=== PATIENT | male | born 1965 | race African-American/Black ===

== ENCOUNTER 2019-09-07 08:24 | Inpatient (IN) | payer MEDICAID ==
[~2019-09-07] VITALS: Ht 177.8 cm; Wt 51.7 kg
[2019-09-07] MEDS ORDERED: LORAZEPAM 1MG TABLET PO ONE (08:45)
[2019-09-07] MEDS ORDERED: ASPIRIN 325MG EC TABLET PO ONE (08:45)
[2019-09-07] MEDS ORDERED: NICOTINE 21MG PATCH TD ONE (08:45)
[2019-09-07 09:02] LABS: BASOPHILS % 0.2 % (0.0-2.0); EOSINOPHILS % 0.2 % (0.0-5.0); HEMATOCRIT. 36.8 % (42.0-52.0); HEMOGLOBIN. 12.2 g/dL (14.0-18.0); LYMPHOCYTES % 8.9 % (20.0-50.0); MEAN CORPUSCULAR HEMOGLOBIN 33.7 pg (28.0-32.0); MEAN CORPUSCULAR VOLUME 101.5 fL (80.0-94.0); MONOCYTES % 4.7 % (2.0-8.0); PLATELET 127 x1000/uL (130-400); RED BLOOD CELL COUNT 3.62 mill/uL (4.7-6.1); RED CELL DISTRIBUTION WIDTH 15.1 % (11.6-14.6)
[2019-09-07 09:10] LABS: CHLORIDE 102 mEq/L (98-107)
[2019-09-07 12:08] LABS: CLARITY URINE CLEAR (CLEAR); COLOR URINE DARK YELLOW (YELLOW); KETONES URINE NEGATIVE (NEGATIVE); LEUKOCYTE ESTERASE URINE NEGATIVE (NEGATIVE); NITRITE URINE NEGATIVE (NEGATIVE); OCCULT BLOOD URINE NEGATIVE (NEGATIVE); PROTEIN URINE TRACE (NEGATIVE); SPECIFIC GRAVITY URINE 1.021 (1.005-1.030)
[2019-09-07 17:01] VITALS: BP 140/78
[2019-09-07] MEDS ORDERED: CLONIDINE 0.1MG TABLET PO PRN (17:45)
[2019-09-07] MEDS ORDERED: ACETAMINOPHEN 325MG TABLET PO PRN (17:45)
[2019-09-07] MEDS ORDERED: ONDANSETRON HCL 4MG/2ML INJ IV PRN (17:45)
[2019-09-07] MEDS ORDERED: IPRATROPIUM/ALBUTEROL 0.5-3(2.5)MG/3ML NEB NEB PRN (17:45)
[2019-09-07 17:54] VITALS: BP 140/78
[2019-09-07 18:00] VITALS: BP 106/82
[2019-09-07] MEDS ORDERED: PROT40 MT (18:59)
[2019-09-07] MEDS ORDERED: DEPER5 MT (18:59)
[2019-09-07] MEDS ORDERED: FERR325T6 MT (18:59)
[2019-09-07] MEDS ORDERED: LEVO50TA8 MT (18:59)
[2019-09-07] MEDS ORDERED: ZOLP5TAB8 PO (18:59)
[2019-09-07] MEDS ORDERED: BENZ1TAB7 PO (18:59)
[2019-09-07] MEDS ORDERED: ESSENTIAL ONE DAILY PO (19:20)
[2019-09-07] MEDS ORDERED: ALBUTEROL INH (19:20)
[2019-09-07] MEDS ORDERED: CLOZAPINE PO (19:20)
[2019-09-07] MEDS ORDERED: DOCU-138 MT (19:20)
[2019-09-07] MEDS ORDERED: CLOZ100T31 PO (19:20)
[2019-09-07] MEDS ORDERED: CALC-25 PO (19:20)
[2019-09-07] MEDS ORDERED: ENOXAPARIN 40MG/0.4ML SYR SUBCUT SCH (20:00)
[2019-09-07 20:01] VITALS: BP 129/94
[2019-09-07] MEDS: DEXT 5%/0.45% NACL 1000ML 1,000 ML IV SCH (20:58)
[2019-09-07 22:00] VITALS: BP 157/71
[2019-09-08] VITALS (13 sets, daily range): BP systolic 106–145; BP diastolic 27–86
[2019-09-08] MEDS: LORAZEPAM 2MG/ML CPJ IM PRN ×2 (02:48→10:49)
[2019-09-08] MEDS: DEXT 5%/0.45% NACL 1000ML 1,000 ML IV SCH ×4 (04:30→23:48)
[2019-09-08 06:36] LABS: BASOPHILS % 0.3 % (0.0-2.0); EOSINOPHILS % 0.6 % (0.0-5.0); HEMATOCRIT. 31.7 % (42.0-52.0); HEMOGLOBIN. 10.8 g/dL (14.0-18.0); LYMPHOCYTES % 19.4 % (20.0-50.0); MEAN CORPUSCULAR HEMOGLOBIN 34.3 pg (28.0-32.0); MEAN CORPUSCULAR VOLUME 100.3 fL (80.0-94.0); MEAN PLATELET VOLUME 8.2 fl (7.4-10.4); MONOCYTES % 6.2 % (2.0-8.0); NEUTROPHILS % 73.5 % (40.0-76.0); PLATELET 128 x1000/uL (130-400); RED BLOOD CELL COUNT 3.16 mill/uL (4.7-6.1); RED CELL DISTRIBUTION WIDTH 14.8 % (11.6-14.6)
[2019-09-08 07:54] LABS: CHLORIDE 103 mEq/L (98-107)
[2019-09-08] MEDS ORDERED: LORAZEPAM 2MG/ML CPJ IV NR (15:45)
[2019-09-08 20:26] LABS: T4 FREE 1.05 ng/dL (0.76-1.46)
[2019-09-08 20:39] LABS: FOLIC ACID (FOLATE) SERUM > 20.00 ng/mL (>5.38)
[2019-09-08 20:48] LABS: VITAMIN B12 SERUM 1519 pg/mL (211-911)
[2019-09-08] MEDS ORDERED: ENOXAPARIN 30MG/0.3ML SYR SUBCUT SCH (21:00)
[2019-09-08] MEDS ORDERED: QUETIAPINE FUMARATE 50MG TABLET PO SCH (21:00)
[2019-09-08] MEDS: BENZTROPINE MESYLATE 1MG TABLET PO SCH (21:00)
[2019-09-08] MEDS: DIVALPROEX SODIUM 500MG ER TABLET PO SCH (21:00)
[2019-09-08] MEDS: ASPIRIN 81MG TABLET PO SCH (23:47)
[2019-09-09] VITALS (8 sets, daily range): BP systolic 18–135; BP diastolic 58–130
[2019-09-09 01:12] LABS: *AMPHETAMINES SCREEN URINE NEGATIVE (NEGATIVE); *BARBITURATES SCREEN URINE NEGATIVE (NEGATIVE)
[2019-09-09 01:13] LABS: *BENZODIAZEPINES SCREEN URINE NEGATIVE (NEGATIVE); *COCAINE SCREEN URINE NEGATIVE (NEGATIVE); CANNABINOID URINE SCREEN NEGATIVE (NEGATIVE); METHADONE URINE SCREEN NEGATIVE (NEGATIVE); OPIATES URINE SCREEN NEGATIVE (NEGATIVE); PHENCYCLIDINE URINE SCREEN NEGATIVE (NEGATIVE)
[2019-09-09] MEDS ORDERED: LEVOTHYROXINE SODIUM 50MCG TABLET PO SCH (06:50)
[2019-09-09] MEDS: LORAZEPAM 2MG/ML CPJ IM PRN ×2 (08:06→14:06)
[2019-09-09] MEDS: ASPIRIN 81MG TABLET PO SCH (09:00)
[2019-09-09] MEDS: DIVALPROEX SODIUM 500MG ER TABLET PO SCH (09:00)
[2019-09-09] MEDS: BENZTROPINE MESYLATE 1MG TABLET PO SCH (09:00)
[2019-09-09] MEDS: DEXT 5%/0.45% NACL 1000ML 1,000 ML IV SCH (10:30)
== END 2019-09-09 17:40 | disposition home or self-care (01) | DRG 45 ==
LOC: ER 08:24 → ENRESERV 15:50 → 3WST 17:13 → 6WST 09-09 10:55
PROVIDERS: ADMIT Internal Medicine; ATTEND Internal Medicine
DX: I63.9 Cerebral infarction, unspecified (principal); E44.1 Mild protein-calorie malnutrition; F20.9 Schizophrenia, unspecified; G81.94 Hemiplegia, unspecified affecting left nondominant side; D64.9 Anemia, unspecified; E03.9 Hypothyroidism, unspecified; I10 Essential (primary) hypertension; R47.81 Slurred speech; R62.50 Unspecified lack of expected normal physiological development in childhood; M21.332 Wrist drop, left wrist; K21.9 Gastro-esophageal reflux disease without esophagitis; J45.909 Unspecified asthma, uncomplicated; F17.210 Nicotine dependence, cigarettes, uncomplicated; G45.9 Transient cerebral ischemic attack, unspecified
CPT/HCPCS: 36415; 71045; 80048; 80053; 80061; 80165; 80305; 80320; 81003; 82607; 82746; 82962; 83036; 84439; 84443; 84481; 85025; 92610; 93306; 93880; 93970; 97162; 99285; J1650; J2060; G0480

== ENCOUNTER 2019-09-09 21:08 | Inpatient (IN) | payer MEDICAID ==
[~2019-09-09] VITALS: Ht 167.6 cm; Wt 44.9 kg
[~2019-09-09 21:08] MED LIST: ALBUTEROL INH; BENZ1TAB7 PO; CALC-25 PO; CLOZ100T31 PO; DEPER5 MT; DOCU-138 MT; ESSENTIAL ONE DAILY PO; FERR325T6 MT; LEVO50TA8 MT; PROT40 MT; ZOLP5TAB8 PO
[2019-09-09] MEDS ORDERED: SODIUM CHLORIDE 0.9% 1000ML BAG (SEPSIS BOLUS) IV ONE (21:30)
[2019-09-09] MEDS ORDERED: PROPOFOL 10MG/ML 100ML 100 ML IV NR (21:53)
[2019-09-09 22:19] LABS: BASOPHILS % 0.3 % (0.0-2.0); EOSINOPHILS % 0.5 % (0.0-5.0); HEMATOCRIT. 31.7 % (42.0-52.0); HEMOGLOBIN. 10.9 g/dL (14.0-18.0); MEAN CORPUSCULAR HEMOGLOBIN 34.2 pg (28.0-32.0); MEAN CORPUSCULAR VOLUME 99.6 fL (80.0-94.0); MEAN PLATELET VOLUME 8.4 fl (7.4-10.4); MONOCYTES % 6.1 % (2.0-8.0); NEUTROPHILS % 79.1 % (40.0-76.0); PLATELET 107 x1000/uL (130-400); RED BLOOD CELL COUNT 3.19 mill/uL (4.7-6.1); RED CELL DISTRIBUTION WIDTH 14.3 % (11.6-14.6)
[2019-09-09 22:22] LABS: INR 1.1; PROTHROMBIN TIME 11.7 sec (9.6-11.0)
[2019-09-09 22:26] LABS: CHLORIDE 106 mEq/L (98-107)
[2019-09-09 22:30] LABS: ETHANOL BLOOD < 10 mg/dL
[2019-09-09 22:42] LABS: BG CARBOXYHEMOGLOBIN 0.3 % (0.5-1.5); BG DEOXYHEMOGLOBIN 0.7 % (0.0-5.0); BG FRACTION INSPIRED OXYGEN 100; BG HCO3 ACT 27.2 mmol/L (22.0-26.0); BG METHEMOGLOBIN 0.2 % (0.0-1.5); BG OXYGEN SATURATION 99.3 % (92.0-98.5); BG OXYHEMOGLOBIN 98.8 % (94.0-97.0); BG PCO2 51.4 mmHg (35.0-45.0); BG PH 7.342 (7.350-7.450); BG PO2 421.7 mmHg (75.0-100.0); BG SAMPLE SITE RIGHT RADIAL; BG TIDAL VOLUME(mL) 500 mL; BG TOTAL HEMOGLOBIN 9.5 g/dL (12.0-18.0); BG VENT MODE VENT - A/C; BG VENT RATE 16 set
[2019-09-09] MEDS ORDERED: PROPOFOL 10MG/ML 100ML 100 ML IV SCH (22:45)
[2019-09-10] VITALS (83 sets, daily range): BP systolic 71–149; BP diastolic 29–97
[2019-09-10] MEDS ORDERED: PROPOFOL 10MG/ML 100ML 100 ML IV SCH (00:30)
[2019-09-10] MEDS ORDERED: ACETAMINOPHEN 325MG TABLET PO PRN (00:30)
[2019-09-10] MEDS ORDERED: PIPERACILLIN/TAZ 3.375G PREMIX 50 ML IV SCH ×2 (01:00→10:00)
[2019-09-10] MEDS ORDERED: VANCOMYCIN 1 G PREMIX 200 ML IV SCH (01:00)
[2019-09-10 02:16] LABS: CLARITY URINE CLEAR (CLEAR); COLOR URINE YELLOW (YELLOW); KETONES URINE TRACE (NEGATIVE); LEUKOCYTE ESTERASE URINE NEGATIVE (NEGATIVE); NITRITE URINE NEGATIVE (NEGATIVE); OCCULT BLOOD URINE 2+ (NEGATIVE); PROTEIN URINE TRACE (NEGATIVE); SPECIFIC GRAVITY URINE 1.012 (1.005-1.030)
[2019-09-10 02:53] LABS: *AMPHETAMINES SCREEN URINE NEGATIVE (NEGATIVE); *BARBITURATES SCREEN URINE NEGATIVE (NEGATIVE); *BENZODIAZEPINES SCREEN URINE NEGATIVE (NEGATIVE); *COCAINE SCREEN URINE NEGATIVE (NEGATIVE); CANNABINOID URINE SCREEN NEGATIVE (NEGATIVE); METHADONE URINE SCREEN NEGATIVE (NEGATIVE); OPIATES URINE SCREEN NEGATIVE (NEGATIVE)
[2019-09-10 02:54] LABS: PHENCYCLIDINE URINE SCREEN NEGATIVE (NEGATIVE)
[2019-09-10] MEDS: SODIUM CHLORIDE 0.9% 1,000 ML IV SCH ×2 (04:09→21:00)
[2019-09-10] MEDS: ACETAMINOPHEN 650MG/20.3ML UDC PO PRN ×2 (04:22→11:00)
[2019-09-10 06:02] LABS: CREATINE KINASE 299 IU/L (39-308)
[2019-09-10] MEDS: PROPOFOL 10MG/ML 100ML 100 ML IV PRN ×3 (08:14→21:30)
[2019-09-10] MEDS: VANCOMYCIN 1250MG in DEXTROSE 5% WATER 250ML IV SCH ×2 (09:00→21:37)
[2019-09-10] MEDS ORDERED: ENOXAPARIN 40MG/0.4ML SYR SUBCUT SCH (09:00)
[2019-09-10 09:27] LABS: BG CARBOXYHEMOGLOBIN 0.3 % (0.5-1.5); BG FRACTION INSPIRED OXYGEN 35; BG HCO3 ACT 20.7 mmol/L (22.0-26.0); BG METHEMOGLOBIN 0.3 % (0.0-1.5); BG OXYHEMOGLOBIN 97.4 % (94.0-97.0); BG PH 7.377 (7.350-7.450); BG PO2 117.9 mmHg (75.0-100.0); BG SAMPLE SITE RIGHT RADIAL; BG TIDAL VOLUME(mL) 500 mL; BG VENT MODE VENT - A/C; BG VENT RATE 14 set
[2019-09-10] MEDS ORDERED: INFLUENZA VIRUS VACCINE(AFLURIA) 0.5ML SYR IM ONE (10:00)
[2019-09-10] MEDS: PIPERACILLIN/TAZOBACTAM 3.375 G in DEXT 5% WATER 100 ML IV SCH ×2 (10:18→18:00)
[2019-09-10] MEDS: FOLIC ACID 1MG TABLET PO SCH (12:00)
[2019-09-10] MEDS: THIAMINE HCL 100MG TABLET PO SCH (12:00)
[2019-09-10 17:05] LABS: CREATINE KINASE 478 IU/L (39-308)
[2019-09-10 17:06] LABS: CREATINE KINASE MB FRACTION 6.7 ng/mL (0.5-3.6)
[2019-09-11] VITALS (87 sets, daily range): BP systolic 84–184; BP diastolic 42–146
[2019-09-11] MEDS: PIPERACILLIN/TAZOBACTAM 3.375 G in DEXT 5% WATER 100 ML IV SCH ×3 (02:00→17:52)
[2019-09-11] MEDS: PROPOFOL 10MG/ML 100ML 100 ML IV PRN ×4 (02:00→21:07)
[2019-09-11] MEDS: SODIUM CHLORIDE 0.9% 1,000 ML IV SCH ×2 (05:40→16:08)
[2019-09-11 05:46] LABS: HEMATOCRIT. 31.7 % (42.0-52.0); HEMOGLOBIN. 10.8 g/dL (14.0-18.0); MEAN CORPUSCULAR HEMOGLOBIN 34.2 pg (28.0-32.0); MEAN CORPUSCULAR VOLUME 100.9 fL (80.0-94.0); MEAN PLATELET VOLUME 8.6 fl (7.4-10.4); PLATELET 88 x1000/uL (130-400); RED BLOOD CELL COUNT 3.15 mill/uL (4.7-6.1); RED CELL DISTRIBUTION WIDTH 14.6 % (11.6-14.6)
[2019-09-11 05:56] LABS: CHLORIDE 112 mEq/L (98-107)
[2019-09-11 08:22] LABS: PLATELET ESTIMATE DECREASED
[2019-09-11] MEDS: FOLIC ACID 1MG TABLET PO SCH (08:47)
[2019-09-11] MEDS: ACETAMINOPHEN 650MG/20.3ML UDC PO PRN (08:47)
[2019-09-11] MEDS: THIAMINE HCL 100MG TABLET PO SCH (08:47)
[2019-09-11] MEDS: VANCOMYCIN 1250MG in DEXTROSE 5% WATER 250ML IV SCH (08:47)
[2019-09-11] MEDS: PANTOPRAZOLE SODIUM 40 MG/VIAL IV SCH (08:47)
[2019-09-11] MEDS ORDERED: HALOPERIDOL LACTATE 5MG/ML VIAL IM SCH (09:45)
[2019-09-11 13:46] LABS: BG BASE EXCESS -4.9 mmol/L (-2.0-2.0); BG DEOXYHEMOGLOBIN 1.6 % (0.0-5.0); BG FRACTION INSPIRED OXYGEN 40; BG HCO3 ACT 19.6 mmol/L (22.0-26.0); BG METHEMOGLOBIN 0.1 % (0.0-1.5); BG OXYGEN SATURATION 98.4 % (92.0-98.5); BG OXYHEMOGLOBIN 98.3 % (94.0-97.0); BG PCO2 34.3 mmHg (35.0-45.0); BG PH 7.374 (7.350-7.450); BG PO2 126.2 mmHg (75.0-100.0); BG PRESSURE SUPPORT 10; BG SAMPLE SITE RIGHT RADIAL; BG TOTAL HEMOGLOBIN 11.1 g/dL (12.0-18.0); BG VENT MODE VENT - CPAP
[2019-09-11 14:58] LABS: COVID-19 PCR RNA NOT DETECTED
[2019-09-11] MEDS: VANCOMYCIN 1,000 MG in DEXT 5% WATER 250 ML IV SCH (21:05)
[2019-09-12] VITALS (93 sets, daily range): BP systolic 91–162; BP diastolic 51–83
[2019-09-12] MEDS: IPRATROPIUM/ALBUTEROL 0.5-3(2.5)MG/3ML NEB NEB PRN (00:27)
[2019-09-12] MEDS: PIPERACILLIN/TAZOBACTAM 3.375 G in DEXT 5% WATER 100 ML IV SCH ×3 (01:46→17:15)
[2019-09-12] MEDS: PROPOFOL 10MG/ML 100ML 100 ML IV PRN ×4 (04:10→22:46)
[2019-09-12 08:52] LABS: BASOPHILS % 0.2 % (0.0-2.0); EOSINOPHILS % 1.4 % (0.0-5.0); HEMATOCRIT. 29.2 % (42.0-52.0); HEMOGLOBIN. 10.1 g/dL (14.0-18.0); LYMPHOCYTES % 11.4 % (20.0-50.0); MEAN CORPUSCULAR HEMOGLOBIN 34.3 pg (28.0-32.0); MEAN CORPUSCULAR VOLUME 99.1 fL (80.0-94.0); MEAN PLATELET VOLUME 8.7 fl (7.4-10.4); MONOCYTES % 4.8 % (2.0-8.0); NEUTROPHILS % 82.2 % (40.0-76.0); PLATELET 88 x1000/uL (130-400); RED BLOOD CELL COUNT 2.95 mill/uL (4.7-6.1); RED CELL DISTRIBUTION WIDTH 14.6 % (11.6-14.6)
[2019-09-12 09:00] LABS: CHLORIDE 114 mEq/L (98-107)
[2019-09-12] MEDS: PANTOPRAZOLE SODIUM 40 MG/VIAL IV SCH (09:11)
[2019-09-12] MEDS: VANCOMYCIN 1,000 MG in DEXT 5% WATER 250 ML IV SCH ×2 (09:13→20:39)
[2019-09-12] MEDS: THIAMINE HCL 100MG TABLET PO SCH (09:14)
[2019-09-12] MEDS: SODIUM CHLORIDE 0.9% 1,000 ML IV SCH ×2 (09:15→23:39)
[2019-09-12] MEDS: FOLIC ACID 1MG TABLET PO SCH (09:15)
[2019-09-12] MEDS ORDERED: NA PHOS,M-B/NA PHOS,DI-BA ENEMA 118ML PR NR (16:45)
[2019-09-12] MEDS ORDERED: DOCUSATE SODIUM 100MG CAPSULE PO SCH (17:00)
[2019-09-12 17:49] LABS: HEPATITIS B SURFACE ANTIGEN NEGATIVE
[2019-09-12 18:19] LABS: HEPATITIS A AB IGM NEGATIVE (NEGATIVE)
[2019-09-13] VITALS (91 sets, daily range): BP systolic 92–138; BP diastolic 20–82
[2019-09-13] MEDS: PIPERACILLIN/TAZOBACTAM 3.375 G in DEXT 5% WATER 100 ML IV SCH ×3 (01:38→17:07)
[2019-09-13] MEDS: PROPOFOL 10MG/ML 100ML 100 ML IV PRN ×3 (05:12→18:14)
[2019-09-13 06:10] LABS: BASOPHILS % 0.4 % (0.0-2.0); EOSINOPHILS % 2.4 % (0.0-5.0); HEMATOCRIT. 26.8 % (42.0-52.0); HEMOGLOBIN. 9.1 g/dL (14.0-18.0); LYMPHOCYTES % 15.2 % (20.0-50.0); MEAN CORPUSCULAR VOLUME 100.1 fL (80.0-94.0); MEAN PLATELET VOLUME 8.4 fl (7.4-10.4); PLATELET 89 x1000/uL (130-400); RED BLOOD CELL COUNT 2.68 mill/uL (4.7-6.1); RED CELL DISTRIBUTION WIDTH 14.5 % (11.6-14.6)
[2019-09-13 06:13] LABS: CHLORIDE 111 mEq/L (98-107)
[2019-09-13] MEDS: IPRATROPIUM/ALBUTEROL 0.5-3(2.5)MG/3ML NEB NEB PRN (07:57)
[2019-09-13 09:11] LABS: BG BASE EXCESS 1.2 mmol/L (-2.0-2.0); BG CARBOXYHEMOGLOBIN 0.3 % (0.5-1.5); BG FRACTION INSPIRED OXYGEN 40; BG HCO3 ACT 25.8 mmol/L (22.0-26.0); BG METHEMOGLOBIN 0.3 % (0.0-1.5); BG OXYHEMOGLOBIN 97.4 % (94.0-97.0); BG PCO2 41.1 mmHg (35.0-45.0); BG PH 7.416 (7.350-7.450); BG PO2 120.9 mmHg (75.0-100.0); BG PRESSURE SUPPORT 10; BG SAMPLE SITE LEFT RADIAL; BG TIDAL VOLUME(mL) 500 mL; BG TOTAL HEMOGLOBIN 9.7 g/dL (12.0-18.0); BG VENT MODE VENT - SIMV; BG VENT RATE 12 set
[2019-09-13] MEDS: PANTOPRAZOLE SODIUM 40 MG/VIAL IV SCH (09:49)
[2019-09-13] MEDS: VANCOMYCIN 1,000 MG in DEXT 5% WATER 250 ML IV SCH ×2 (09:49→21:20)
[2019-09-13] MEDS: SODIUM CHLORIDE 0.9% 1,000 ML IV SCH ×2 (13:00→23:20)
[2019-09-13] MEDS: DOCUSATE SODIUM SUGAR FREE 100MG/10ML UDC NG SCH (13:24)
[2019-09-13] MEDS: MORPHINE SULFATE 2 MG/ML CPJ (NOT FOR IM USE) IV PRN (16:25)
[2019-09-14] VITALS (96 sets, daily range): BP systolic 98–151; BP diastolic 43–95
[2019-09-14] MEDS: PIPERACILLIN/TAZOBACTAM 3.375 G in DEXT 5% WATER 100 ML IV SCH ×3 (01:14→17:22)
[2019-09-14] MEDS: PROPOFOL 10MG/ML 100ML 100 ML IV PRN ×4 (01:15→21:39)
[2019-09-14 06:27] LABS: BASOPHILS % 0.4 % (0.0-2.0); EOSINOPHILS % 2.8 % (0.0-5.0); HEMATOCRIT. 27.6 % (42.0-52.0); HEMOGLOBIN. 9.4 g/dL (14.0-18.0); LYMPHOCYTES % 19.7 % (20.0-50.0); MEAN CORPUSCULAR VOLUME 99.5 fL (80.0-94.0); MEAN PLATELET VOLUME 8.7 fl (7.4-10.4); MONOCYTES % 10.1 % (2.0-8.0); PLATELET 105 x1000/uL (130-400); RED BLOOD CELL COUNT 2.77 mill/uL (4.7-6.1); RED CELL DISTRIBUTION WIDTH 14.3 % (11.6-14.6)
[2019-09-14 06:28] LABS: CHLORIDE 112 mEq/L (98-107)
[2019-09-14] MEDS: VANCOMYCIN 1,000 MG in DEXT 5% WATER 250 ML IV SCH ×2 (08:37→20:43)
[2019-09-14] MEDS: DOCUSATE SODIUM SUGAR FREE 100MG/10ML UDC NG SCH (08:37)
[2019-09-14] MEDS: PANTOPRAZOLE SODIUM 40 MG/VIAL IV SCH (08:37)
[2019-09-14] MEDS: SODIUM CHLORIDE 0.9% 1,000 ML IV SCH (13:33)
[2019-09-15] VITALS (95 sets, daily range): BP systolic 85–142; BP diastolic 27–96
[2019-09-15] MEDS: PIPERACILLIN/TAZOBACTAM 3.375 G in DEXT 5% WATER 100 ML IV SCH ×3 (01:25→17:42)
[2019-09-15] MEDS: SODIUM CHLORIDE 0.9% 1,000 ML IV SCH ×2 (02:59→16:00)
[2019-09-15] MEDS: PROPOFOL 10MG/ML 100ML 100 ML IV PRN ×4 (03:00→21:55)
[2019-09-15] MEDS: IPRATROPIUM/ALBUTEROL 0.5-3(2.5)MG/3ML NEB NEB PRN ×3 (08:15→16:06)
[2019-09-15] MEDS: DOCUSATE SODIUM SUGAR FREE 100MG/10ML UDC NG SCH (08:47)
[2019-09-15] MEDS: VANCOMYCIN 1,000 MG in DEXT 5% WATER 250 ML IV SCH ×2 (08:47→20:13)
[2019-09-15] MEDS: PANTOPRAZOLE SODIUM 40 MG/VIAL IV SCH (08:47)
[2019-09-15] MEDS ORDERED: SODIUM BICARBONATE 4% (2.4MEQ) 5ML VIAL IV ONE (10:37)
[2019-09-16] VITALS (77 sets, daily range): BP systolic 70–142; BP diastolic 44–86
[2019-09-16] MEDS: PROPOFOL 10MG/ML 100ML 100 ML IV PRN ×2 (03:24→09:05)
[2019-09-16 05:38] LABS: BASOPHILS % 0.5 % (0.0-2.0); EOSINOPHILS % 2.8 % (0.0-5.0); HEMATOCRIT. 26.6 % (42.0-52.0); HEMOGLOBIN. 9.3 g/dL (14.0-18.0); LYMPHOCYTES % 20.8 % (20.0-50.0); MEAN CORPUSCULAR HEMOGLOBIN 34.2 pg (28.0-32.0); MEAN CORPUSCULAR VOLUME 98.2 fL (80.0-94.0); MEAN PLATELET VOLUME 7.9 fl (7.4-10.4); NEUTROPHILS % 65.9 % (40.0-76.0); PLATELET 149 x1000/uL (130-400); RED BLOOD CELL COUNT 2.71 mill/uL (4.7-6.1); RED CELL DISTRIBUTION WIDTH 13.9 % (11.6-14.6)
[2019-09-16 05:40] LABS: CHLORIDE 107 mEq/L (98-107)
[2019-09-16 08:05] LABS: BG CARBOXYHEMOGLOBIN 0.3 % (0.5-1.5); BG HCO3 ACT 30.6 mmol/L (22.0-26.0); BG METHEMOGLOBIN 0.1 % (0.0-1.5); BG OXYHEMOGLOBIN 97.6 % (94.0-97.0); BG PCO2 44.8 mmHg (35.0-45.0); BG PH 7.452 (7.350-7.450); BG PO2 114.7 mmHg (75.0-100.0); BG SAMPLE SITE RIGHT RADIAL; BG TIDAL VOLUME(mL) 500 mL; BG TOTAL HEMOGLOBIN 10.1 g/dL (12.0-18.0); BG VENT MODE VENT - SIMV; BG VENT RATE 12 set
[2019-09-16] MEDS: PANTOPRAZOLE SODIUM 40 MG/VIAL IV SCH (09:04)
[2019-09-16] MEDS: DOCUSATE SODIUM SUGAR FREE 100MG/10ML UDC NG SCH (09:04)
[2019-09-16] MEDS: HALOPERIDOL LACTATE 5MG/ML VIAL IM PRN ×2 (10:44→20:10)
[2019-09-16 11:58] LABS: BG BASE EXCESS 4.5 mmol/L (-2.0-2.0); BG CARBOXYHEMOGLOBIN 0.3 % (0.5-1.5); BG DEOXYHEMOGLOBIN 1.9 % (0.0-5.0); BG FRACTION INSPIRED OXYGEN 40; BG HCO3 ACT 29.1 mmol/L (22.0-26.0); BG METHEMOGLOBIN 0.3 % (0.0-1.5); BG OXYGEN SATURATION 98.1 % (92.0-98.5); BG OXYHEMOGLOBIN 97.5 % (94.0-97.0); BG PCO2 44.1 mmHg (35.0-45.0); BG PH 7.438 (7.350-7.450); BG PO2 127.7 mmHg (75.0-100.0); BG PRESSURE SUPPORT 8; BG SAMPLE SITE RIGHT RADIAL; BG VENT MODE VENT - CPAP
[2019-09-16 13:06] LABS: ANTI-CARDIOLIPIN AB IGA < 9 APL U/mL (0-11); ANTI-CARDIOLIPIN AB IGG < 9 GPL U/mL (0-14); ANTI-CARDIOLIPIN AB IGM < 9 MPL U/mL (0-12)
[2019-09-16] MEDS: MORPHINE SULFATE 2 MG/ML CPJ (NOT FOR IM USE) IV PRN (13:14)
[2019-09-16] MEDS: ONDANSETRON HCL 4MG/2ML INJ IV PRN (13:15)
[2019-09-16 15:06] LABS: ANTI-THROMBIN ACTIVITY 81 % (75-135); DRVVT LA 41.2 sec (0.0-47.0); PROTEIN C FUNCTIONAL 91 % (73-180); PTT-LA 61.3 sec (0.0-51.9)
[2019-09-16] MEDS: BENZTROPINE MESYLATE 2MG TABLET PO SCH (17:07)
[2019-09-16] MEDS: NICOTINE 21MG PATCH TD SCH (17:07)
[2019-09-16] MEDS: QUETIAPINE FUMARATE 50MG TABLET PO SCH (20:11)
[2019-09-17] VITALS (42 sets, daily range): BP systolic 69–146; BP diastolic 33–105
[2019-09-17] MEDS: HALOPERIDOL LACTATE 5MG/ML VIAL IM PRN ×2 (04:53→13:31)
[2019-09-17] MEDS: LEVOTHYROXINE SODIUM 50MCG TABLET PO SCH (05:42)
[2019-09-17 05:46] LABS: BASOPHILS % 0.6 % (0.0-2.0); EOSINOPHILS % 1.1 % (0.0-5.0); HEMATOCRIT. 26.9 % (42.0-52.0); HEMOGLOBIN. 9.3 g/dL (14.0-18.0); LYMPHOCYTES % 12.8 % (20.0-50.0); MEAN CORPUSCULAR HEMOGLOBIN 33.8 pg (28.0-32.0); MEAN CORPUSCULAR VOLUME 98.4 fL (80.0-94.0); MEAN PLATELET VOLUME 7.8 fl (7.4-10.4); MONOCYTES % 10.4 % (2.0-8.0); NEUTROPHILS % 75.1 % (40.0-76.0); PLATELET 182 x1000/uL (130-400); RED BLOOD CELL COUNT 2.74 mill/uL (4.7-6.1); RED CELL DISTRIBUTION WIDTH 13.6 % (11.6-14.6)
[2019-09-17 05:52] LABS: CHLORIDE 105 mEq/L (98-107)
[2019-09-17 05:58] LABS: PARTIAL THROMBOPLASTIN TIME 33.7 sec (23.4-31.0); PROTHROMBIN TIME 10.7 sec (9.6-11.0)
[2019-09-17 06:07] LABS: HEXAGONAL PHASE PHOSPHOLIPID 8 sec (0-11); LUPUS ANTICOAG INTERPRETATION Comment: (.); PTT-LA MIX 55.8 sec (0.0-48.9)
[2019-09-17] MEDS ORDERED: CEFAZOLIN 1000MG PREMIX 50 ML IV NR (08:00)
[2019-09-17] MEDS: DOCUSATE SODIUM SUGAR FREE 100MG/10ML UDC NG SCH (08:06)
[2019-09-17] MEDS: PANTOPRAZOLE SODIUM 40 MG/VIAL IV SCH (08:06)
[2019-09-17] MEDS: NICOTINE 21MG PATCH TD SCH (08:07)
[2019-09-17] MEDS: QUETIAPINE FUMARATE 50MG TABLET PO SCH ×2 (08:07→20:42)
[2019-09-17] MEDS: DIVALPROEX SODIUM 500MG ER TABLET PO SCH (08:07)
[2019-09-17] MEDS: BENZTROPINE MESYLATE 2MG TABLET PO SCH ×2 (08:08→16:31)
[2019-09-17] MEDS ORDERED: CALCIUM CARBONATE 1250MG TABLET (500MG ELEMENTAL CALCIUM) PO SCH ×2 (09:00→09:30)
[2019-09-17] MEDS: DEXT 5%/0.45% NACL 1000ML 1,000 ML IV SCH (09:35)
[2019-09-17] MEDS ORDERED: MIDAZOLAM HCL 5 MG/5 ML VIAL ONE (11:22)
[2019-09-17] MEDS ORDERED: FENTANYL CITRATE/PF 50MCG/ML 2ML VIAL ONE (11:22)
[2019-09-17] MEDS ORDERED: MIDAZOLAM HCL 5 MG/5 ML VIAL IV PRN (11:42)
[2019-09-17] MEDS: ACETAMINOPHEN 650MG/20.3ML UDC PO PRN ×2 (16:32→20:46)
[2019-09-17] MEDS ORDERED: ZIPRASIDONE MESYLATE 20MG/VIAL IM NR (20:00)
[2019-09-18] VITALS (22 sets, daily range): BP systolic 93–133; BP diastolic 39–81
[2019-09-18] MEDS: DEXT 5%/0.45% NACL 1000ML 1,000 ML IV SCH ×2 (00:06→12:28)
[2019-09-18] MEDS: LEVOTHYROXINE SODIUM 50MCG TABLET PO SCH (05:18)
[2019-09-18] MEDS: PANTOPRAZOLE SODIUM 40 MG/VIAL IV SCH (09:30)
[2019-09-18] MEDS: NICOTINE 21MG PATCH TD SCH (09:30)
[2019-09-18] MEDS: BENZTROPINE MESYLATE 2MG TABLET PO SCH ×2 (09:35→17:41)
[2019-09-18] MEDS: DOCUSATE SODIUM SUGAR FREE 100MG/10ML UDC NG SCH (09:35)
[2019-09-18] MEDS: DIVALPROEX SODIUM 500MG ER TABLET PO SCH (09:35)
[2019-09-18] MEDS: QUETIAPINE FUMARATE 50MG TABLET PO SCH ×2 (09:35→20:44)
[2019-09-19] VITALS (11 sets, daily range): BP systolic 96–123; BP diastolic 51–68
[2019-09-19] MEDS: DEXT 5%/0.45% NACL 1000ML 1,000 ML IV SCH ×2 (04:40→17:21)
[2019-09-19] MEDS: LEVOTHYROXINE SODIUM 50MCG TABLET PO SCH (08:08)
[2019-09-19] MEDS: QUETIAPINE FUMARATE 50MG TABLET PO SCH ×2 (09:22→21:46)
[2019-09-19] MEDS: DOCUSATE SODIUM SUGAR FREE 100MG/10ML UDC NG SCH (09:22)
[2019-09-19] MEDS: NICOTINE 21MG PATCH TD SCH (09:22)
[2019-09-19] MEDS: BENZTROPINE MESYLATE 2MG TABLET PO SCH ×2 (09:26→17:20)
[2019-09-19] MEDS: CALCIUM CARBONATE 1250MG TABLET (500MG ELEMENTAL CALCIUM) PO SCH (09:26)
[2019-09-19] MEDS: DIVALPROEX SODIUM 500MG ER TABLET PO SCH (09:26)
[2019-09-19] MEDS: ACETAMINOPHEN 650MG/20.3ML UDC PO PRN (11:31)
[2019-09-20] VITALS (12 sets, daily range): BP systolic 94–125; BP diastolic 58–71
[2019-09-20] MEDS: LEVOTHYROXINE SODIUM 50MCG TABLET PO SCH (06:21)
[2019-09-20] MEDS: DEXT 5%/0.45% NACL 1000ML 1,000 ML IV SCH ×3 (06:21→23:54)
[2019-09-20 07:09] LABS: BASOPHILS % 0.4 % (0.0-2.0); EOSINOPHILS % 0.8 % (0.0-5.0); HEMATOCRIT. 28.4 % (42.0-52.0); HEMOGLOBIN. 9.8 g/dL (14.0-18.0); LYMPHOCYTES % 10.2 % (20.0-50.0); MEAN CORPUSCULAR HEMOGLOBIN 33.8 pg (28.0-32.0); MEAN CORPUSCULAR VOLUME 98.1 fL (80.0-94.0); MEAN PLATELET VOLUME 7.6 fl (7.4-10.4); NEUTROPHILS % 82.6 % (40.0-76.0); PLATELET 244 x1000/uL (130-400); RED CELL DISTRIBUTION WIDTH 13.9 % (11.6-14.6)
[2019-09-20] MEDS: DIVALPROEX SODIUM 500MG ER TABLET PO SCH (08:59)
[2019-09-20] MEDS: QUETIAPINE FUMARATE 50MG TABLET PO SCH ×2 (08:59→23:54)
[2019-09-20] MEDS: BENZTROPINE MESYLATE 2MG TABLET PO SCH ×2 (08:59→18:48)
[2019-09-20] MEDS: CALCIUM CARBONATE 1250MG TABLET (500MG ELEMENTAL CALCIUM) PO SCH (08:59)
[2019-09-20] MEDS: DOCUSATE SODIUM SUGAR FREE 100MG/10ML UDC NG SCH (08:59)
[2019-09-20] MEDS: NICOTINE 21MG PATCH TD SCH (08:59)
[2019-09-20] MEDS: CEFEPIME 1,000 MG in DEXTROSE 5% WATER 50 ML IV SCH ×2 (14:12→23:54)
[2019-09-21] VITALS (11 sets, daily range): BP systolic 91–114; BP diastolic 31–85
[2019-09-21] MEDS: CALCIUM CARBONATE 1250MG TABLET (500MG ELEMENTAL CALCIUM) PO SCH (09:00)
[2019-09-21] MEDS: CEFEPIME 1,000 MG in DEXTROSE 5% WATER 50 ML IV SCH ×2 (10:33→23:01)
[2019-09-21] MEDS: NICOTINE 21MG PATCH TD SCH (10:33)
[2019-09-21] MEDS: QUETIAPINE FUMARATE 50MG TABLET PO SCH ×2 (10:34→23:01)
[2019-09-21] MEDS: DOCUSATE SODIUM SUGAR FREE 100MG/10ML UDC NG SCH (10:34)
[2019-09-21] MEDS: DIVALPROEX SODIUM 500MG ER TABLET PO SCH (10:34)
[2019-09-21] MEDS: BENZTROPINE MESYLATE 2MG TABLET PO SCH ×2 (10:34→18:25)
[2019-09-21] MEDS: LEVOTHYROXINE SODIUM 50MCG TABLET PO SCH (10:34)
[2019-09-21 13:20] LABS: BASOPHILS % 0.4 % (0.0-2.0); EOSINOPHILS % 1.4 % (0.0-5.0); HEMATOCRIT. 26.9 % (42.0-52.0); HEMOGLOBIN. 9.2 g/dL (14.0-18.0); LYMPHOCYTES % 12.1 % (20.0-50.0); MEAN CORPUSCULAR HEMOGLOBIN 33.8 pg (28.0-32.0); MEAN CORPUSCULAR VOLUME 98.3 fL (80.0-94.0); MEAN PLATELET VOLUME 7.7 fl (7.4-10.4); NEUTROPHILS % 81.1 % (40.0-76.0); PLATELET 222 x1000/uL (130-400); RED BLOOD CELL COUNT 2.74 mill/uL (4.7-6.1)
[2019-09-21 13:32] LABS: CHLORIDE 102 mEq/L (98-107)
[2019-09-21 14:54] LABS: CLARITY URINE TURBID (CLEAR); COLOR URINE YELLOW (YELLOW); KETONES URINE NEGATIVE (NEGATIVE); LEUKOCYTE ESTERASE URINE NEGATIVE (NEGATIVE); NITRITE URINE NEGATIVE (NEGATIVE); OCCULT BLOOD URINE TRACE (NEGATIVE); PH URINE 7.5 (4.5-8.0); PROTEIN URINE 1+ (NEGATIVE); SPECIFIC GRAVITY URINE 1.014 (1.005-1.030)
[2019-09-22] VITALS (14 sets, daily range): BP systolic 88–132; BP diastolic 16–85
[2019-09-22] MEDS: DEXT 5%/0.45% NACL 1000ML 1,000 ML IV SCH ×3 (06:36→21:16)
[2019-09-22 07:08] LABS: BASOPHILS % 0.6 % (0.0-2.0); EOSINOPHILS % 1.9 % (0.0-5.0); LYMPHOCYTES % 12.1 % (20.0-50.0); MEAN CORPUSCULAR HEMOGLOBIN 34.2 pg (28.0-32.0); MEAN CORPUSCULAR VOLUME 98.1 fL (80.0-94.0); MEAN PLATELET VOLUME 8.1 fl (7.4-10.4); NEUTROPHILS % 79.4 % (40.0-76.0); PLATELET 252 x1000/uL (130-400); RED BLOOD CELL COUNT 2.65 mill/uL (4.7-6.1); RED CELL DISTRIBUTION WIDTH 13.8 % (11.6-14.6)
[2019-09-22 07:27] LABS: CHLORIDE 102 mEq/L (98-107)
[2019-09-22] MEDS: HALOPERIDOL LACTATE 5MG/ML VIAL IM PRN ×2 (08:40→16:58)
[2019-09-22] MEDS: QUETIAPINE FUMARATE 50MG TABLET PO SCH ×2 (08:41→21:14)
[2019-09-22] MEDS: NICOTINE 21MG PATCH TD SCH (08:41)
[2019-09-22] MEDS: BENZTROPINE MESYLATE 2MG TABLET PO SCH ×2 (08:41→16:58)
[2019-09-22] MEDS: CALCIUM CARBONATE 1250MG TABLET (500MG ELEMENTAL CALCIUM) PO SCH (08:41)
[2019-09-22] MEDS: DIVALPROEX SODIUM 500MG ER TABLET PO SCH (08:46)
[2019-09-22] MEDS: LEVOTHYROXINE SODIUM 50MCG TABLET PO SCH (08:48)
[2019-09-22] MEDS: DOCUSATE SODIUM SUGAR FREE 100MG/10ML UDC NG SCH (09:00)
[2019-09-22] MEDS: CEFEPIME 1,000 MG in DEXTROSE 5% WATER 50 ML IV SCH ×2 (11:15→21:15)
[2019-09-23] VITALS (10 sets, daily range): BP systolic 91–142; BP diastolic 49–79
[2019-09-23] MEDS: QUETIAPINE FUMARATE 50MG TABLET PO SCH ×2 (08:24→22:03)
[2019-09-23] MEDS: BENZTROPINE MESYLATE 2MG TABLET PO SCH ×2 (08:24→17:39)
[2019-09-23] MEDS: DOCUSATE SODIUM SUGAR FREE 100MG/10ML UDC NG SCH (08:24)
[2019-09-23] MEDS: LEVOTHYROXINE SODIUM 50MCG TABLET PO SCH (08:24)
[2019-09-23] MEDS: NICOTINE 21MG PATCH TD SCH (08:25)
[2019-09-23] MEDS: CALCIUM CARBONATE 1250MG TABLET (500MG ELEMENTAL CALCIUM) PO SCH (08:33)
[2019-09-23] MEDS: DIVALPROEX SODIUM 500MG ER TABLET PO SCH (08:33)
[2019-09-23] MEDS: CEFEPIME 1,000 MG in DEXTROSE 5% WATER 50 ML IV SCH ×2 (11:04→22:03)
[2019-09-23] MEDS: DEXT 5%/0.45% NACL 1000ML 1,000 ML IV SCH (11:50)
[2019-09-23] MEDS: CLONAZEPAM 1MG TABLET PO SCH (23:00)
[2019-09-24] VITALS (12 sets, daily range): BP systolic 97–110; BP diastolic 60–73
[2019-09-24] MEDS: CALCIUM CARBONATE 1250MG TABLET (500MG ELEMENTAL CALCIUM) PO SCH (09:00)
[2019-09-24] MEDS: LEVOTHYROXINE SODIUM 50MCG TABLET PO SCH (09:00)
[2019-09-24] MEDS: DIVALPROEX SODIUM 500MG ER TABLET PO SCH (09:00)
[2019-09-24] MEDS: CLONAZEPAM 1MG TABLET PO SCH ×2 (09:00→17:49)
[2019-09-24] MEDS: BENZTROPINE MESYLATE 2MG TABLET PO SCH ×2 (09:00→17:49)
[2019-09-24] MEDS: QUETIAPINE FUMARATE 50MG TABLET PO SCH ×2 (09:00→20:49)
[2019-09-24] MEDS: DOCUSATE SODIUM SUGAR FREE 100MG/10ML UDC NG SCH (09:00)
[2019-09-24] MEDS: NICOTINE 21MG PATCH TD SCH (09:01)
[2019-09-24] MEDS: CEFEPIME 1,000 MG in DEXTROSE 5% WATER 50 ML IV SCH ×2 (12:11→22:49)
[2019-09-24] MEDS: HALOPERIDOL LACTATE 5MG/ML VIAL IM PRN (14:33)
[2019-09-24] MEDS: ENOXAPARIN 40MG/0.4ML SYR SUBCUT SCH (14:49)
[2019-09-25] VITALS (12 sets, daily range): BP systolic 96–130; BP diastolic 57–92
[2019-09-25] MEDS: LEVOTHYROXINE SODIUM 50MCG TABLET PO SCH (06:47)
[2019-09-25 08:43] LABS: BG BASE EXCESS 8.5 mmol/L (-2.0-2.0); BG CARBOXYHEMOGLOBIN 0.3 % (0.5-1.5); BG DEOXYHEMOGLOBIN 12.3 % (0.0-5.0); BG FRACTION INSPIRED OXYGEN 40; BG HCO3 ACT 33.7 mmol/L (22.0-26.0); BG METHEMOGLOBIN 0.2 % (0.0-1.5); BG OXYGEN SATURATION 87.6 % (92.0-98.5); BG OXYHEMOGLOBIN 87.2 % (94.0-97.0); BG PCO2 50.1 mmHg (35.0-45.0); BG PH 7.446 (7.350-7.450); BG SAMPLE SITE RIGHT RADIAL; BG TOTAL HEMOGLOBIN 10.3 g/dL (12.0-18.0); BG VENT MODE NASAL CANNULA
[2019-09-25] MEDS: QUETIAPINE FUMARATE 50MG TABLET PO SCH ×2 (09:07→20:17)
[2019-09-25] MEDS: CALCIUM CARBONATE 1250MG TABLET (500MG ELEMENTAL CALCIUM) PO SCH (09:07)
[2019-09-25] MEDS: ENOXAPARIN 40MG/0.4ML SYR SUBCUT SCH (09:07)
[2019-09-25] MEDS: BENZTROPINE MESYLATE 2MG TABLET PO SCH ×2 (09:07→16:42)
[2019-09-25] MEDS: NICOTINE 21MG PATCH TD SCH (09:07)
[2019-09-25] MEDS: VALPROATE SODIUM 250MG/5ML UDC NG SCH ×3 (09:07→16:42)
[2019-09-25] MEDS: DOCUSATE SODIUM SUGAR FREE 100MG/10ML UDC NG SCH (09:07)
[2019-09-25] MEDS: CEFEPIME 1,000 MG in DEXTROSE 5% WATER 50 ML IV SCH (11:27)
[2019-09-25 20:09] LABS: HEMATOCRIT. 27.9 % (42.0-52.0); HEMOGLOBIN. 9.7 g/dL (14.0-18.0); MEAN CORPUSCULAR HEMOGLOBIN 34.2 pg (28.0-32.0); MEAN CORPUSCULAR VOLUME 98.7 fL (80.0-94.0); MEAN PLATELET VOLUME 8.2 fl (7.4-10.4); PLATELET 289 x1000/uL (130-400); RED BLOOD CELL COUNT 2.83 mill/uL (4.7-6.1)
[2019-09-25] MEDS: HALOPERIDOL LACTATE 5MG/ML VIAL IM PRN (20:17)
[2019-09-25 20:26] LABS: CHLORIDE 101 mEq/L (98-107)
[2019-09-25 20:57] LABS: PLATELET ESTIMATE NORMAL
[2019-09-26] VITALS (13 sets, daily range): BP systolic 92–123; BP diastolic 30–80
[2019-09-26] MEDS: LEVOTHYROXINE SODIUM 50MCG TABLET PO SCH (05:47)
[2019-09-26 06:52] LABS: BASOPHILS % 0.3 % (0.0-2.0); EOSINOPHILS % 0.5 % (0.0-5.0); HEMATOCRIT. 30.5 % (42.0-52.0); HEMOGLOBIN. 10.4 g/dL (14.0-18.0); LYMPHOCYTES % 7.2 % (20.0-50.0); MEAN CORPUSCULAR HEMOGLOBIN 33.6 pg (28.0-32.0); MEAN CORPUSCULAR VOLUME 98.6 fL (80.0-94.0); MEAN PLATELET VOLUME 8.3 fl (7.4-10.4); MONOCYTES % 3.8 % (2.0-8.0); NEUTROPHILS % 88.2 % (40.0-76.0); PLATELET 300 x1000/uL (130-400); RED BLOOD CELL COUNT 3.09 mill/uL (4.7-6.1); RED CELL DISTRIBUTION WIDTH 14.3 % (11.6-14.6)
[2019-09-26 08:29] LABS: CHLORIDE 101 mEq/L (98-107)
[2019-09-26] MEDS: DOCUSATE SODIUM SUGAR FREE 100MG/10ML UDC NG SCH (09:36)
[2019-09-26] MEDS: CALCIUM CARBONATE 1250MG TABLET (500MG ELEMENTAL CALCIUM) PO SCH (09:37)
[2019-09-26] MEDS: BENZTROPINE MESYLATE 2MG TABLET PO SCH ×2 (09:37→17:06)
[2019-09-26] MEDS: ENOXAPARIN 40MG/0.4ML SYR SUBCUT SCH (09:38)
[2019-09-26] MEDS: QUETIAPINE FUMARATE 50MG TABLET PO SCH (09:38)
[2019-09-26] MEDS: NICOTINE 21MG PATCH TD SCH (09:39)
[2019-09-26] MEDS: VALPROATE SODIUM 250MG/5ML UDC NG SCH ×3 (09:41→17:05)
[2019-09-26 09:48] LABS: BG BASE EXCESS 6.1 mmol/L (-2.0-2.0); BG CARBOXYHEMOGLOBIN 0.3 % (0.5-1.5); BG FRACTION INSPIRED OXYGEN 60; BG HCO3 ACT 30.5 mmol/L (22.0-26.0); BG METHEMOGLOBIN 0.2 % (0.0-1.5); BG OXYHEMOGLOBIN 98.5 % (94.0-97.0); BG PCO2 43.1 mmHg (35.0-45.0); BG PH 7.467 (7.350-7.450); BG PO2 208.4 mmHg (75.0-100.0); BG SAMPLE SITE LEFT BRACHIAL; BG VENT MODE MASK - SIMPLE
[2019-09-26 12:10] LABS: BG BASE EXCESS 10.6 mmol/L (-2.0-2.0); BG CARBOXYHEMOGLOBIN 0.3 % (0.5-1.5); BG DEOXYHEMOGLOBIN 1.1 % (0.0-5.0); BG HCO3 ACT 35.8 mmol/L (22.0-26.0); BG METHEMOGLOBIN 0.2 % (0.0-1.5); BG OXYGEN SATURATION 98.9 % (92.0-98.5); BG OXYHEMOGLOBIN 98.4 % (94.0-97.0); BG PCO2 51.9 mmHg (35.0-45.0); BG PH 7.457 (7.350-7.450); BG PO2 186.2 mmHg (75.0-100.0); BG SAMPLE SITE RIGHT RADIAL; BG TOTAL HEMOGLOBIN 9.8 g/dL (12.0-18.0); BG VENT MODE MASK - SIMPLE
[2019-09-26] MEDS: QUETIAPINE FUMARATE 25MG TABLET PO SCH (20:31)
[2019-09-27] VITALS (15 sets, daily range): BP systolic 98–121; BP diastolic 30–72
[2019-09-27 07:25] LABS: BASOPHILS % 0.4 % (0.0-2.0); EOSINOPHILS % 0.6 % (0.0-5.0); HEMOGLOBIN. 9.7 g/dL (14.0-18.0); MEAN CORPUSCULAR HEMOGLOBIN 33.9 pg (28.0-32.0); MEAN CORPUSCULAR VOLUME 98.5 fL (80.0-94.0); MEAN PLATELET VOLUME 8.2 fl (7.4-10.4); MONOCYTES % 6.8 % (2.0-8.0); NEUTROPHILS % 80.2 % (40.0-76.0); PLATELET 319 x1000/uL (130-400); RED BLOOD CELL COUNT 2.84 mill/uL (4.7-6.1); RED CELL DISTRIBUTION WIDTH 14.2 % (11.6-14.6)
[2019-09-27 07:33] LABS: CHLORIDE 102 mEq/L (98-107)
[2019-09-27] MEDS: CALCIUM CARBONATE 1250MG TABLET (500MG ELEMENTAL CALCIUM) PO SCH (08:04)
[2019-09-27] MEDS: QUETIAPINE FUMARATE 25MG TABLET PO SCH ×2 (08:04→20:14)
[2019-09-27] MEDS: DOCUSATE SODIUM SUGAR FREE 100MG/10ML UDC NG SCH (08:04)
[2019-09-27] MEDS: LEVOTHYROXINE SODIUM 50MCG TABLET PO SCH (08:04)
[2019-09-27] MEDS: VALPROATE SODIUM 250MG/5ML UDC NG SCH ×3 (08:04→17:20)
[2019-09-27] MEDS: BENZTROPINE MESYLATE 2MG TABLET PO SCH ×2 (08:04→17:20)
[2019-09-27] MEDS: NICOTINE 21MG PATCH TD SCH (08:05)
[2019-09-27] MEDS: ENOXAPARIN 40MG/0.4ML SYR SUBCUT SCH (08:06)
[2019-09-27] MEDS: ACETAMINOPHEN 650MG/20.3ML UDC PO PRN (12:30)
[2019-09-27] MEDS: HALOPERIDOL LACTATE 5MG/ML VIAL IM PRN (13:44)
[2019-09-27] MEDS: ONDANSETRON HCL 4MG/2ML INJ IV PRN (23:06)
[2019-09-28] VITALS (12 sets, daily range): BP systolic 85–122; BP diastolic 19–75
[2019-09-28] MEDS: QUETIAPINE FUMARATE 25MG TABLET PO SCH ×2 (08:09→20:17)
[2019-09-28] MEDS: LEVOTHYROXINE SODIUM 50MCG TABLET PO SCH (08:09)
[2019-09-28] MEDS: DOCUSATE SODIUM SUGAR FREE 100MG/10ML UDC NG SCH (08:09)
[2019-09-28] MEDS: BENZTROPINE MESYLATE 2MG TABLET PO SCH ×2 (08:09→16:12)
[2019-09-28] MEDS: CALCIUM CARBONATE 1250MG TABLET (500MG ELEMENTAL CALCIUM) PO SCH (08:09)
[2019-09-28] MEDS: VALPROATE SODIUM 250MG/5ML UDC NG SCH ×3 (08:09→16:12)
[2019-09-28] MEDS: NICOTINE 21MG PATCH TD SCH (08:10)
[2019-09-28] MEDS: ENOXAPARIN 40MG/0.4ML SYR SUBCUT SCH (08:10)
[2019-09-29] VITALS (12 sets, daily range): BP systolic 95–135; BP diastolic 43–91
[2019-09-29] MEDS: CALCIUM CARBONATE 1250MG TABLET (500MG ELEMENTAL CALCIUM) PO SCH (08:49)
[2019-09-29] MEDS: DOCUSATE SODIUM SUGAR FREE 100MG/10ML UDC NG SCH (08:49)
[2019-09-29] MEDS: BENZTROPINE MESYLATE 2MG TABLET PO SCH ×2 (08:49→17:35)
[2019-09-29] MEDS: QUETIAPINE FUMARATE 25MG TABLET PO SCH ×2 (08:49→22:09)
[2019-09-29] MEDS: VALPROATE SODIUM 250MG/5ML UDC NG SCH ×3 (08:49→17:35)
[2019-09-29] MEDS: LEVOTHYROXINE SODIUM 50MCG TABLET PO SCH (08:49)
[2019-09-29] MEDS: NICOTINE 21MG PATCH TD SCH (08:50)
[2019-09-29] MEDS: ENOXAPARIN 40MG/0.4ML SYR SUBCUT SCH (08:50)
[2019-09-29] MEDS: ONDANSETRON HCL 4MG/2ML INJ IV PRN (22:09)
[2019-09-30] VITALS (12 sets, daily range): BP systolic 91–149; BP diastolic 49–80
[2019-09-30] MEDS: ONDANSETRON HCL 4MG/2ML INJ IV PRN (02:19)
[2019-09-30] MEDS: DOCUSATE SODIUM SUGAR FREE 100MG/10ML UDC NG SCH (08:47)
[2019-09-30] MEDS: VALPROATE SODIUM 250MG/5ML UDC NG SCH ×3 (08:47→17:14)
[2019-09-30] MEDS: NICOTINE 21MG PATCH TD SCH (08:47)
[2019-09-30] MEDS: CALCIUM CARBONATE 1250MG TABLET (500MG ELEMENTAL CALCIUM) PO SCH (08:48)
[2019-09-30] MEDS: BENZTROPINE MESYLATE 2MG TABLET PO SCH ×2 (08:48→17:14)
[2019-09-30] MEDS: QUETIAPINE FUMARATE 25MG TABLET PO SCH ×2 (08:48→21:13)
[2019-09-30] MEDS: LEVOTHYROXINE SODIUM 50MCG TABLET PO SCH (08:48)
[2019-09-30] MEDS: ENOXAPARIN 40MG/0.4ML SYR SUBCUT SCH (08:49)
[2019-09-30] MEDS ORDERED: LORAZEPAM 2MG/ML CPJ IV NR (12:00)
[2019-10-01] VITALS (11 sets, daily range): BP systolic 89–166; BP diastolic 33–82
[2019-10-01] MEDS: LEVOTHYROXINE SODIUM 50MCG TABLET PO SCH (08:29)
[2019-10-01] MEDS: VALPROATE SODIUM 250MG/5ML UDC NG SCH ×2 (10:04→13:23)
[2019-10-01] MEDS: DOCUSATE SODIUM SUGAR FREE 100MG/10ML UDC NG SCH (10:04)
[2019-10-01] MEDS: ENOXAPARIN 40MG/0.4ML SYR SUBCUT SCH (10:05)
[2019-10-01] MEDS: ACETAMINOPHEN 650MG/20.3ML UDC PO PRN (10:05)
[2019-10-01] MEDS: NICOTINE 21MG PATCH TD SCH (10:05)
[2019-10-01] MEDS: QUETIAPINE FUMARATE 25MG TABLET PO SCH (10:05)
[2019-10-01] MEDS: BENZTROPINE MESYLATE 2MG TABLET PO SCH (10:06)
[2019-10-01] MEDS: CALCIUM CARBONATE 1250MG TABLET (500MG ELEMENTAL CALCIUM) PO SCH (10:29)
[2019-10-01 15:36] LABS: BASOPHILS % 0.3 % (0.0-2.0); EOSINOPHILS % 0.6 % (0.0-5.0); HEMATOCRIT. 32.4 % (42.0-52.0); HEMOGLOBIN. 10.9 g/dL (14.0-18.0); LYMPHOCYTES % 23.3 % (20.0-50.0); MEAN CORPUSCULAR HEMOGLOBIN 33.6 pg (28.0-32.0); MEAN CORPUSCULAR VOLUME 99.3 fL (80.0-94.0); MEAN PLATELET VOLUME 8.6 fl (7.4-10.4); MONOCYTES % 10.3 % (2.0-8.0); NEUTROPHILS % 65.5 % (40.0-76.0); PLATELET 294 x1000/uL (130-400); RED BLOOD CELL COUNT 3.26 mill/uL (4.7-6.1); RED CELL DISTRIBUTION WIDTH 14.3 % (11.6-14.6)
[2019-10-01 15:52] LABS: CHLORIDE 105 mEq/L (98-107)
== END 2019-10-01 19:50 | DRG 720 ==
LOC: ER 21:08 → EDBEDREQTM 23:03 → EDBEDREQSVC 23:03 → EDBEDREQ 23:03 → MICUNO 09-10 00:15 → EDBEDREQ 09-10 00:19 → ENRESERV 09-10 02:34 → MICUNO 09-12 06:40 → 5EST 09-18 21:11
PROVIDERS: ADMIT Internal Medicine; ATTEND Internal Medicine
PROC: 5A1955Z Respiratory Ventilation, Greater than 96 Consecutive Hours (ICD-10-PCS; principal; 2019-09-10)
PROC: 0BH17EZ Insertion of Endotracheal Airway into Trachea, Via Natural or Artificial Opening (ICD-10-PCS; 2019-09-10)
PROC: 0W9B3ZZ Drainage of Left Pleural Cavity, Percutaneous Approach (ICD-10-PCS; 2019-09-15)
PROC: 4A00X4Z Measurement of Central Nervous Electrical Activity, External Approach (ICD-10-PCS; 2019-09-16)
PROC: 0DH63UZ Insertion of Feeding Device into Stomach, Percutaneous Approach (ICD-10-PCS; 2019-09-17)
DX: A41.9 Sepsis, unspecified organism (principal); I63.9 Cerebral infarction, unspecified; J69.0 Pneumonitis due to inhalation of food and vomit; G92 Toxic encephalopathy; J96.02 Acute respiratory failure with hypercapnia; J91.8 Pleural effusion in other conditions classified elsewhere; J96.01 Acute respiratory failure with hypoxia; E43 Unspecified severe protein-calorie malnutrition; Z99.11 Dependence on respirator [ventilator] status; R13.10 Dysphagia, unspecified; D69.6 Thrombocytopenia, unspecified; I10 Essential (primary) hypertension; E03.9 Hypothyroidism, unspecified; D53.9 Nutritional anemia, unspecified; E86.0 Dehydration; N28.1 Cyst of kidney, acquired; K08.109 Complete loss of teeth, unspecified cause, unspecified class; D72.810 Lymphocytopenia; Z20.828 Contact with and (suspected) exposure to other viral communicable diseases; R47.81 Slurred speech; R18.8 Other ascites; Z86.73 Personal history of transient ischemic attack (TIA), and cerebral infarction without residual deficits; Z93.1 Gastrostomy status; Z68.1 Body mass index [BMI] 19.9 or less, adult; Z79.899 Other long term (current) drug therapy
CPT/HCPCS: 31500; 32555; 36415; 36600; 70551; 71045; 71250; 76700; 78580; 80048; 80053; 80076; 80202; 80305; 80320; 81003; 81400; 81403; 81407; 81479; 82140; 82375; 82550; 82553; 82805; 83605; 83880; 84145; 84478; 84484; 85025; 85300; 85303; 85306; 85379; 85613; 85732; 86147; 86705; 86709; 86803; 87340; 87804; 88108; 88312; 90686; 92610; 93005; 93970; 94002; 94003; 94640; 97110; 97162; 97166; 97530; 99291; C9113; J0690; J0692; J1630; J1650; J2060; J2250; J2270; J2405; J2543; J2704; J3010; J3370; J3486; J3490; J7030; J7060; G0480